=== PATIENT | male | born 1960 | race Caucasian/White ===

== ENCOUNTER 2018-07-29 13:03 | Emergency (ER) | payer OTHER, SELFPAY ==
[2018-07-29 13:12] VITALS: BP 172/102; PULSE 95; RESP 20; TEMP 37.1; O2SAT 98
--- NOTE | 2018-07-29 13:15 | DI.RAD.S_ITS ---
PROCEDURE: XR CHEST 1V INDICATIONS: chest pain TECHNIQUE: One view of the chest was acquired. COMPARISON: [facility], , XR CHEST 2VW, 06/30/2016, 15:19. FINDINGS: Surgical changes and devices: None. Lungs and pleura: Minimal atelectasis versus scarring is identified at the left diaphragm, which is unchanged since the prior study. No new consolidation is evident. There is no effusion or pneumothorax. Mediastinum: Mediastinal contours appear normal. Heart size is normal. Bones and chest wall: No suspicious bony lesions. Overlying soft tissues appear unremarkable. IMPRESSION: Stable chest. No acute cardiopulmonary process is evident. Dictated by: Adelfo Batista M.D. on 07/29/2018 at 12:43 Approved by: Adelfo Batista M.D. on 07/29/2018 at 12:44
[2018-07-29 13:28] LABS: Add Manual Diff / Slide Review NO; Basophils Absolute Auto 100 /uL (0-100); Basophils Percent Auto 0.6 % (0-2); Eosinophils Absolute Auto 0 /uL (0-450); Eosinophils Percent Auto 0.1 % (2-4); Hematocrit 43.8 % (41-53); Hemoglobin 15.3 g/dL (13.5-17.5); Lymphocytes Absolute Auto 1500 /uL (1100-4500); Lymphocytes Percent Auto 14.5 % (25-40); Mean Corpuscular Hemoglobin 32.3 PG (26-34); Mean Corpuscular Volume 92.1 fL (80-100); Monocytes Absolute Auto 600 /uL (0-900); Neutrophils Absolute Auto 8400 /uL (1500-7000); Neutrophils Percent Auto 78.8 % (50-75); Platelet Count 317 X10^3/uL (150-400); Red Blood Cell Count 4.75 X10^6/uL (4.5-5.9); Red Cell Distribution Width 13.7 % (11.6-14.8); White Blood Cell Count 10.6 X10^3/uL (4.5-11.0)
[2018-07-29 13:40] VITALS: BP 140/93; BP 150/103; BP 166/97; PULSE 100; PULSE 108; PULSE 119
[2018-07-29 13:46] LABS: Alanine Aminotransferase 65 IU/L (21-72); Albumin 5.2 g/dL (3.5-5.0); Albumin Globulin Ratio 1.5 (1.0-2.8); Alkaline Phosphatase 74 U/L (38-126); Aspartate Aminotransferase 51 IU/L (17-59); BUN Creatinine Ratio 12.5 (6-22); Bilirubin Total 1.3 mg/dL (0.2-1.3); Blood Urea Nitrogen 10 mg/dL (9-20); Calcium 9.9 mg/dL (8.4-10.2); Carbon Dioxide 22 mmol/L (22-32); Chloride 98 mmol/L (98-107); Estimated Glomerular Filt Rate > 60.0 mL/min (>60); Globulin 3.5 g/dL (1.7-4.1); Glucose 112 mg/dL (70-100); HEMOLYSIS < 15 (0-50); Potassium 3.3 mmol/L (3.4-5.1); Sodium 134 mmol/L (137-145); Total Protein 8.7 g/dL (6.3-8.2)
[2018-07-29 13:58] LABS: Troponin I < 0.012 ng/mL (0.01-0.034)
--- NOTE | 2018-07-29 14:28 | ED.DIZZY ---
HPI - Dizziness General Chief Complaint: Dizziness Stated Complaint: Shaky and weak Time Seen by Provider: 07/29/18 13:17 Source: patient Mode of arrival: ambulatory Limitations: no limitations History of Present Illness HPI Narrative: This is a 57-year-old male comes in with complaint of feeling slightly tremors, dizzy and just not feeling well. Patient states that he started sertraline on . They started at 50 mg they have been titrating him up. He states that he does have a history of aortic stenosis. Patient is unsure if it is mild, moderate or severe. He seen Dr. barry blancas for his forensic medical examiner. He saw them about for 5 months ago. He had an echo about a year ago. They have been following him regularly. He states he kind has a chest pressure intermittently all of the time he has had multiple workups which have been negative. He states that he does feel short of breath sometimes it does not seem to be directly related to exertion. He states sometimes it is when he sitting or has anxiety. Patient denies any nausea or vomiting, no diarrhea, constipation, abdominal pain. He has not had any other GI or urinary symptoms. Patient states his blood pressure was high at the [place] which again went to get checked because he was feeling well. They did check a blood sugar and it showed about 120. Can not had very much fluid to drink this morning. He is on medications for hypertension, dyslipidemia as well as anxiety. Drinks about 2 cans of alcohol daily. I has a history significant for his dad had cardiac issues at the age of 69. He states his sister has some heart issues but she is also very hard on her body. Patient states he did feel little bit dizzy when they did orthostatics here and his heart rate did elevate. Related Data Home Medications Medication Instructions Recorded Confirmed amlodipine 10 mg PO DAILY 07/29/18 07/29/18 chlorthalidone 12.5 mg PO DAILY 07/29/18 07/29/18 losartan 25 mg PO DAILY 07/29/18 07/29/18 metoprolol succinate 50 mg PO DAILY 07/29/18 07/29/18 pantoprazole 40 mg PO DAILY 07/29/18 07/29/18 rosuvastatin 20 mg PO DAILY 07/29/18 07/29/18 sertraline 50 mg PO DAILY 07/29/18 Review of Systems Review of Systems ROS Unobtainable: All systems reviewed & are unremarkable except as noted in HPI and below Constitutional Denies chills, Denies fever(s), Reports headache(s) (mild), Denies lethargy and Denies weakness ENT Ears, Nose, Mouth, and Throat: Denies vertigo, Reports dizziness and Reports headache(s) (mild) Cardiovascular Reports chest pain, Denies diaphoresis, Denies syncope, Denies edema, Denies irregular heart rhythm, Denies lightheadedness, Denies radiating jaw, neck or arm pain, Denies palpitations, Reports dyspnea, Denies dyspnea on exertion and Denies orthopnea Respiratory Denies change in phlegm color, Denies chest congestion, Denies cough, Denies pain on inspiration, Reports dyspnea, Denies dyspnea on exertion and Denies wheezing Gastrointestinal Gastrointestinal: Denies abdominal pain, Denies melena, Denies hematochezia, Denies change in bowel habits, Denies diarrhea, Denies nausea and Denies vomiting Genitourinary Denies hematuria, Denies flank pain, Denies urinary incontinence and Denies urinary urgency Musculoskeletal Denies back pain, Denies numbness and Denies tingling Integumentary/Breasts Denies rash Neurologic Denies vertigo, Reports dizziness, Denies syncope, Reports headache(s) (mild), Denies numbness, Denies sensory deficit, Denies tingling and Denies weakness Psychiatric Reports anxiety and Denies depression Endocrine Denies palpitations Allergic/Immunologic Denies wheezing PFSH Medical History Aortic stenosis (Acute) Dyslipidemia (Acute) Hypertension (Acute) Family History Father No problems noted. Social History Smoking Status: Current some day smoker alcohol intake: current substance use type: does not use Exam Narrative Exam Narrative: GEN: well nourished, well appearing male, alert and oriented x 3, patient appears to be in mild distress. HEENT: Atraumatic, pupils are equal round reactive to light, extraocular movements are intact, nares are clear, TMs are clear with no fluid, there is no conjunctival pallor. Throat is clear without any exudates, erythema, tonsillar enlargement or uvular deviation HEART: Regular rate and rhythm without murmur, clicks, rubs. LUNGS:Lungs clear to auscultation, no wheezes, rales, crackles, chest moves symmetrically ABD:bowel sounds normal, soft, non-tender, no guarding, rebound, rigidity, no masses noted, no hepatosplenomegaly :No CVA tenderness. MSCL: Non-tender, no muscle atrophy, muscles strength 5/5 upper and lower extremities, full range of motion, normal gait NEURO:CN 2-12 intact, sensation normal, reflexes 2/4 upper and lower extremities. Very mild tremor. Initial Vital Signs Initial Vital Signs: Vital Signs Temperature 98.7 F 07/29/18 13:12 Pulse Rate 95 H 07/29/18 13:12 Respiratory Rate 20 07/29/18 13:12 Blood Pressure 172/102 H 07/29/18 13:12 Pulse Oximetry 98 07/29/18 13:12 Course Orders Ordered: ED Orders 07/29/18 12:50 Complete Blood Count AUTO DIFF Stat Comprehensive Metabolic Panel Stat Troponin I Stat 07/29/18 13:15 Chest [XR chest 1V] Stat EKG-12 Lead Stat Discontinued Medications Acetaminophen (Tylenol) 975 mg PO NOW ONE Stop: 07/29/18 14:25 Last Admin: 07/29/18 14:38 Dose: 975 mg Sodium Chloride (Normal Saline 0.9%) 1,000 mls @ 1,000 mls/hr IV BOLUS ONE Stop: 07/29/18 15:23 Last Infusion: 07/29/18 15:42 Dose: 0 mls/hr Admin: 07/29/18 14:39 Dose: 1,000 mls/hr Potassium Chloride (Potassium Chloride) 40 meq PO NOW ONE Stop: 07/29/18 14:28 Last Admin: 07/29/18 14:39 Dose: 40 meq Vital Signs - 8 hr 07/29/18 13:12 07/29/18 13:40 07/29/18 14:47 Temperature 98.7 F Pulse Rate 95 H 94 H Pulse Rate [Orthostatic Lying] 100 H Pulse Rate [Orthostatic Sitting] 108 H Pulse Rate [Orthostatic Standing] 119 H Respiratory Rate 20 14 Blood Pressure 172/102 H Blood Pressure [Left Arm] 157/94 H Blood Pressure [Orthostatic Lying] 166/97 H Blood Pressure [Orthostatic Sitting] 150/103 H Blood Pressure [Orthostatic Standing] 140/93 H Pulse Oximetry 98 95 07/29/18 15:00 07/29/18 15:30 Temperature Pulse Rate 91 H 87 Pulse Rate [Orthostatic Lying] Pulse Rate [Orthostatic Sitting] Pulse Rate [Orthostatic Standing] Respiratory Rate 21 22 Blood Pressure Blood Pressure [Left Arm] 152/93 H 149/88 H Blood Pressure [Orthostatic Lying] Blood Pressure [Orthostatic Sitting] Blood Pressure [Orthostatic Standing] Pulse Oximetry 97 94 MDM - Dizziness Lab Data Attestation: I reviewed the patient's lab results. Result diagrams: 07/29/18 12:50 07/29/18 12:50 Lab Results 07/29/18 07/29/18 Range/Units 12:50 12:50 WBC 10.6 (4.5-11.0) X10^3/uL RBC 4.75 (4.5-5.9) X10^6/uL Hgb 15.3 (13.5-17.5) g/dL Hct 43.8 (41-53) % MCV 92.1 (80-100) fL MCH 32.3 (26-34) PG MCHC 35.0 (30-36) % RDW 13.7 (11.6-14.8) % Plt Count 317 (150-400) X10^3/uL Neut % (Auto) 78.8 H (50-75) % Lymph % (Auto) 14.5 L (25-40) % [place] % (Auto) 6.0 (3-14) % Eos % (Auto) 0.1 L (2-4) % Baso % (Auto) 0.6 (0-2) % Neut # (Auto) 8400 H (5519-6112) /uL Lymph # (Auto) 1500 (1135-2062) /uL [place] # (Auto) 600 (0-900) /uL Eos # (Auto) 0 (0-450) /uL Baso # (Auto) 100 (0-100) /uL Sodium 134 L (137-145) mmol/L Potassium 3.3 L (3.4-5.1) mmol/L Chloride 98 (98-107) mmol/L Carbon Dioxide 22 (22-32) mmol/L BUN 10 (9-20) mg/dL Creatinine 0.80 (0.66-1.25) mg/dL Estimated GFR > 60.0 (>60) mL/min BUN/Creatinine Ratio 12.5 (6-22) Glucose 112 H (70-100) mg/dL Calcium 9.9 (8.4-10.2) mg/dL Total Bilirubin 1.3 (0.2-1.3) mg/dL AST 51 (17-59) IU/L ALT 65 (21-72) IU/L Alkaline Phosphatase 74 (38-126) U/L Troponin I < 0.012 (0.01-0.034) ng/mL Total Protein 8.7 H (6.3-8.2) g/dL Albumin 5.2 H (3.5-5.0) g/dL Globulin 3.5 (1.7-4.1) g/dL Albumin/Globulin Ratio 1.5 (1.0-2.8) Urine Dip Bedside Urine Glucose Negative Bedside Urine Bilirubin - Negative Bedside Urine Ketone - Negative Urine Specific [place] 1.015 Bedside Urine Occult Blood - Negative Bedside Urine pH 7.0 Bedside Urine Protein - Negative Bedside Urine Urobilinogen - Negative Bedside Urine Nitrite - Negative Bedside Urine Leukocytes - Negative Esterase Imaging Data Chest x-ray: Radiologist's impression: [address] [address] XRay Report Signed Patient: Fletcher Marin MR#: [id number] : 1960 Acct:[id number] Age/Sex: 57 / M Date of Service: 07/29/18 Loc: ED Accession Number: [id number] Procedure: XR chest 1V Ordering Provider: Rani Baptiste D.O. PROCEDURE: XR CHEST 1V INDICATIONS: chest pain TECHNIQUE: One view of the chest was acquired. COMPARISON: [facility], , XR CHEST 2VW, 06/30/2016, 15:19. FINDINGS: Surgical changes and devices: None. Lungs and pleura: Minimal atelectasis versus scarring is identified at the left diaphragm, which is unchanged since the prior study. No new consolidation is evident. There is no effusion or pneumothorax. Mediastinum: Mediastinal contours appear normal. Heart size is normal. Bones and chest wall: No suspicious bony lesions. Overlying soft tissues appear unremarkable. IMPRESSION: Stable chest. No acute cardiopulmonary process is evident. Dictated by: Adelfo Batista M.D. on 07/29/2018 at 12:43 Approved by: Adelfo Batista M.D. on 07/29/2018 at 12:44 ECG Data Attestation: I personally reviewed and interpreted this ECG as follows: Prior ECG tracings: not available for review Interpretation: Sign or his rhythm with a rate of 98, MD interval of 192 QRS of 101 and QTC of 414. Patient has some ST depression in V4 5 6. No prior's available. MDM Narrative Medical decision making narrative: Patient comes in with complaint of dizziness. And feeling sort of shaky along with not very well. He was started sertraline 50 mg on . We discussed that some of this could be secondary to his medication but did evaluate for further cardiac, pulmonary/other causes. Discussed with patient in orthostatics are positive. Was given a L of fluids and some Tylenol for a mild headache. Patient states he is feeling better. He has walked to the bathroom several times without issue. He is not having any new changes with this chest pain is not showing any signs a critical or severe aortic stenosis or sudden worsening. We did discuss signs and symptoms to watch out for. Patient feels much better and plan for return home at this time. We did discuss reasons to return emergently. Discharge Plan Departure Patient Disposition: Home Clinical Impression: Dizziness Discharge Date/Time: 07/29/18 15:41 Interventions: ED Discharge Assessment Last Done: 07/29/18 15:41 Instructions: DI for Dizziness-Nonvertigo Activity Restrictions/Additional Instructions: Follow-up with your primary care physician in the next couple days for recheck. If you are continuing to have symptoms I would also contact your forensic medical examiner for follow-up in the next week. I would recommend trying a half dose or half tablet of your sertraline for the next 5-7 days and then increasing to a full tablet daily. This may improve some of your symptoms. Make sure you drinking plenty of fluids. Return to the emergency department for worsening symptoms, passing out, new chest pain or pressure, shortness of breath, persistent vomiting, sudden severe headaches, vision changes, new weakness or numbness or other new or concerning symptoms. Prescriptions: No Action metoprolol succinate 50 mg tablet extended release 24 hr 50 mg PO DAILY RF: 0 chlorthalidone 25 mg tablet 12.5 mg PO DAILY RF: 0 amlodipine 10 mg tablet 10 mg PO DAILY RF: 0 pantoprazole 40 mg tablet,delayed release (DR/EC) 40 mg PO DAILY RF: 0 losartan 25 mg tablet 25 mg PO DAILY RF: 0 sertraline 50 mg tablet 50 mg PO DAILY RF: 0 rosuvastatin 20 mg tablet 20 mg PO DAILY RF: 0
[2018-07-29] MEDS: ACETAMINOPHEN 325 MG TABLET 975 MG PO (14:38)
[2018-07-29] MEDS: POTASSIUM CHLORIDE 20 MEQ/15 ML UDC 40 MEQ PO (14:39)
[2018-07-29] MEDS: SODIUM CHLORIDE 0.9% 1,000 ML 1000 ML IV (14:39)
--- NOTE | 2018-07-29 14:41 | ED_ITS ---
HPI - Dizziness General Chief Complaint: Dizziness Stated Complaint: Shaky and weak Time Seen by Provider: 07/29/18 13:17 Source: patient Mode of arrival: ambulatory Limitations: no limitations History of Present Illness HPI Narrative: This is a 57-year-old male comes in with complaint of feeling slightly tremors, dizzy and just not feeling well. Patient states that he started sertraline on . They started at 50 mg they have been titrating him up. He states that he does have a history of aortic stenosis. Patient is unsure if it is mild, moderate or severe. 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 He saw them about for 5 months ago. He had an echo about a year ago. They have been following him regularly. He states he kind has a chest pressure intermittently all of the time he has had multiple workups which have been negative. He states that he does feel short of breath sometimes it does not seem to be directly related to exertion. He states sometimes it is when he sitting or has anxiety. Patient denies any nausea or vomiting, no diarrhea, constipation, abdominal pain. He has not had any other GI or urinary symptoms. Patient states his blood pressure was high at the ref[place] which again went to get checked because he was feeling well. They did check a blood sugar and it showed about 120. Can not had very much fluid to drink this morning. He is on medications for hypertension, dyslipidemia as well as anxiety. Drinks about 2 cans of alcohol daily. I has a history significant for his dad had cardiac issues at the age of 69. He states his sister has some heart issues but she is also very hard on her body. Patient states he did feel little bit dizzy when they did orthostatics here and his heart rate did elevate. Related Data Home Medications Medication Instructions Recorded Confirmed amlodipine 10 mg PO DAILY 07/29/18 07/29/18 chlorthalidone 12.5 mg PO DAILY 07/29/18 07/29/18 losartan 25 mg PO DAILY 07/29/18 07/29/18 metoprolol succinate 50 mg PO DAILY 07/29/18 07/29/18 pantoprazole 40 mg PO DAILY 07/29/18 07/29/18 rosuvastatin 20 mg PO DAILY 07/29/18 07/29/18 sertraline 50 mg PO DAILY 07/29/18 Review of Systems Review of Systems ROS Unobtainable: All systems reviewed & are unremarkable except as noted in HPI and below Constitutional Denies chills, Denies fever(s), Reports headache(s) (mild), Denies lethargy and Denies weakness ENT Ears, Nose, Mouth, and Throat: Denies vertigo, Reports dizziness and Reports headache(s) (mild) Cardiovascular Reports chest pain, Denies diaphoresis, Denies syncope, Denies edema, Denies irregular heart rhythm, Denies lightheadedness, Denies radiating jaw, neck or arm pain, Denies palpitations, Reports dyspnea, Denies dyspnea on exertion and Denies orthopnea Respiratory Denies change in phlegm color, Denies chest congestion, Denies cough, Denies pain on inspiration, Reports dyspnea, Denies dyspnea on exertion and Denies wheezing Gastrointestinal Gastrointestinal: Denies abdominal pain, Denies melena, Denies hematochezia, Denies change in bowel habits, Denies diarrhea, Denies nausea and Denies vomiting Genitourinary Denies hematuria, Denies flank pain, Denies urinary incontinence and Denies urinary urgency Musculoskeletal Denies back pain, Denies numbness and Denies tingling Integumentary/Breasts Denies rash Neurologic Denies vertigo, Reports dizziness, Denies syncope, Reports headache(s) (mild), Denies numbness, Denies sensory deficit, Denies tingling and Denies weakness Psychiatric Reports anxiety and Denies depression Endocrine Denies palpitations Allergic/Immunologic Denies wheezing PFSH Medical History Aortic stenosis (Acute) Dyslipidemia (Acute) Hypertension (Acute) Family History Father No problems noted. Social History Smoking Status: Current some day smoker alcohol intake: current substance use type: does not use Exam Narrative Exam Narrative: GEN: well nourished, well appearing male, alert and oriented x 3 , patient appears to be in mild distress. HEENT: Atraumatic, pupils are equal round reactive to light, extraocular movements are intact, nares are clear, TMs are clear with no fluid, there is no conjunctival pallor. Throat is clear without any exudates, erythema, tonsillar enlargement or uvular deviation HEART: Regular rate and rhythm without murmur, clicks, rubs. LUNGS:Lungs clear to auscultation, no wheezes, rales, crackles, chest moves symmetrically ABD:bowel sounds normal, soft, non-tender, no guarding, rebound, rigidity, no masses noted, no hepatosplenomegaly :No CVA tenderness. MSCL: Non-tender, no muscle atrophy, muscles strength 5/5 upper and lower extremities, full range of motion, normal gait NEURO:CN 2-12 intact, sensation normal, reflexes 2/4 upper and lower extremities. Very mild tremor. Initial Vital Signs Initial Vital Signs: Vital Signs Temperature 98.7 F 07/29/18 13:12 Pulse Rate 95 H 07/29/18 13:12 Respiratory Rate 20 07/29/18 13:12 Blood Pressure 172/102 H 07/29/18 13:12 Pulse Oximetry 98 07/29/18 13:12 Course Orders Ordered: ED Orders 07/29/18 12:50 Complete Blood Count AUTO DIFF Stat Comprehensive Metabolic Panel Stat Troponin I Stat 07/29/18 13:15 Chest [XR chest 1V] Stat EKG-12 Lead Stat Discontinued Medications Acetaminophen (Tylenol) 975 mg PO NOW ONE Stop: 07/29/18 14:25 Last Admin: 07/29/18 14:38 Dose: 975 mg Sodium Chloride (Normal Saline 0.9%) 1,000 mls @ 1,000 mls/hr IV BOLUS ONE Stop: 07/29/18 15:23 Last Infusion: 07/29/18 15:42 Dose: 0 mls/hr Admin: 07/29/18 14:39 Dose: 1,000 mls/hr Potassium Chloride (Potassium Chloride) 40 meq PO NOW ONE Stop: 07/29/18 14:28 Last Admin: 07/29/18 14:39 Dose: 40 meq Vital Signs - 8 hr 07/29/18 13:12 07/29/18 13:40 07/29/18 14:47 Temperature 98.7 F Pulse Rate 95 H 94 H Pulse Rate [Orthostatic Lying] 100 H Pulse Rate [Orthostatic Sitting] 108 H Pulse Rate [Orthostatic Standing] 119 H Respiratory Rate 20 14 Blood Pressure 172/102 H Blood Pressure [Left Arm] 157/94 H Blood Pressure [Orthostatic Lying] 166/97 H Blood Pressure [Orthostatic Sitting] 150/103 H Blood Pressure [Orthostatic Standing] 140/93 H Pulse Oximetry 98 95 07/29/18 15:00 07/29/18 15:30 Temperature Pulse Rate 91 H 87 Pulse Rate [Orthostatic Lying] Pulse Rate [Orthostatic Sitting] Pulse Rate [Orthostatic Standing] Respiratory Rate 21 22 Blood Pressure Blood Pressure [Left Arm] 152/93 H 149/88 H Blood Pressure [Orthostatic Lying] Blood Pressure [Orthostatic Sitting] Blood Pressure [Orthostatic Standing] Pulse Oximetry 97 94 MDM - Dizziness Lab Data Attestation: I reviewed the patient's lab results. Result diagrams: 07/29/18 12:50 07/29/18 12:50 Lab Results 07/29/18 07/29/18 Range/Units 12:50 12:50 WBC 10.6 (4.5-11.0) X10^3/uL RBC 4.75 (4.5-5.9) X10^6/uL Hgb 15.3 (13.5-17.5) g/dL Hct 43.8 (41-53) % MCV 92.1 (80-100) fL MCH 32.3 (26-34) PG MCHC 35.0 (30-36) % RDW 13.7 (11.6-14.8) % Plt Count 317 (150-400) X10^3/uL Neut % (Auto) 78.8 H (50-75) % Lymph % (Auto) 14.5 L (25-40) % Norman % (Auto) 6.0 (3-14) % Eos % (Auto) 0.1 L (2-4) % Baso % (Auto) 0.6 (0-2) % Neut # (Auto) 8400 H (6171-1398) /uL Lymph # (Auto) 1500 (3526-3847) /uL Norman # (Auto) 600 (0-900) /uL Eos # (Auto) 0 (0-450) /uL Baso # (Auto) 100 (0-100) /uL Sodium 134 L (137-145) mmol/L Potassium 3.3 L (3.4-5.1) mmol/L Chloride 98 (98-107) mmol/L Carbon Dioxide 22 (22-32) mmol/L BUN 10 (9-20) mg/dL Creatinine 0.80 (0.66-1.25) mg/dL Estimated GFR > 60.0 (>60) mL/min BUN/Creatinine Ratio 12.5 (6-22) Glucose 112 H (70-100) mg/dL Calcium 9.9 (8.4-10.2) mg/dL Total Bilirubin 1.3 (0.2-1.3) mg/dL AST 51 (17-59) IU/L ALT 65 (21-72) IU/L Alkaline Phosphatase 74 (38-126) U/L Troponin I < 0.012 (0.01-0.034) ng/mL Total Protein 8.7 H (6.3-8.2) g/dL Albumin 5.2 H (3.5-5.0) g/dL Globulin 3.5 (1.7-4.1) g/dL Albumin/Globulin Ratio 1.5 (1.0-2.8) Urine Dip Bedside Urine Glucose Negative Bedside Urine Bilirubin - Negative Bedside Urine Ketone - Negative Urine Specific [place] 1.015 Bedside Urine Occult Blood - Negative Bedside Urine pH 7.0 Bedside Urine Protein - Negative Bedside Urine Urobilinogen - Negative Bedside Urine Nitrite - Negative Bedside Urine Leukocytes - Negative Esterase Imaging Data Chest x-ray: Radiologist's impression: [address] [address] XRay Report Signed Patient: Fletcher Marin MR#: [id number] : 1960 Acct:[id number] Age/Sex: 57 / M Date of Service: 07/29/18 Loc: ED Accession Number: [id number] Procedure: XR chest 1V Ordering Provider: Rani Baptiste D.O. PROCEDURE: XR CHEST 1V INDICATIONS: chest pain TECHNIQUE: One view of the chest was acquired. COMPARISON: [facility], , XR CHEST 2VW, 06/30/2016, 15:19. FINDINGS: Surgical changes and devices: None. Lungs and pleura: Minimal atelectasis versus scarring is identified at the left diaphragm, which is unchanged since the prior study. No new consolidation is evident. There is no effusion or pneumothorax. Mediastinum: Mediastinal contours appear normal. Heart size is normal. Bones and chest wall: No suspicious bony lesions. Overlying soft tissues appear unremarkable. IMPRESSION: Stable chest. No acute cardiopulmonary process is evident. Dictated by: Adelfo Batista M.D. on 07/29/2018 at 12:43 Approved by: Adelfo Batista M.D. on 07/29/2018 at 12:44 ECG Data Attestation: I personally reviewed and interpreted this ECG as follows: Prior ECG tracings: not available for review Interpretation: Sign or his rhythm with a rate of 98, MD interval of 192 QRS of 101 and QTC of 414. Patient has some ST depression in V4 5 6. No prior's available. MDM Narrative Medical decision making narrative: Patient comes in with complaint of dizziness. And feeling sort of shaky along with not very well. He was started sertraline 50 mg on . We discussed that some of this could be secondary to his medication but did evaluate for further cardiac, pulmonary/ other causes. Discussed with patient in orthostatics are positive. Was given a L of fluids and some Tylenol for a mild headache. Patient states he is feeling better. He has walked to the bathroom several times without issue. He is not having any new changes with this chest pain is not showing any signs a critical or severe aortic stenosis or sudden worsening. We did discuss signs and symptoms to watch out for. Patient feels much better and plan for return home at this time. We did discuss reasons to return emergently. Discharge Plan Departure Patient Disposition: Home Clinical Impression: Dizziness Discharge Date/Time: 07/29/18 15:41 Interventions: ED Discharge Assessment Last Done: 07/29/18 15:41 Instructions: DI for Dizziness-Nonvertigo Activity Restrictions/Additional Instructions: Follow-up with your primary care physician in the next couple days for recheck. 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 I would recommend trying a half dose or half tablet of your sertraline for the next 5-7 days and then increasing to a full tablet daily. This may improve some of your symptoms. Make sure you drinking plenty of fluids. Return to the emergency department for worsening symptoms, passing out, new chest pain or pressure, shortness of breath, persistent vomiting, sudden severe headaches, vision changes, new weakness or numbness or other new or concerning symptoms. Prescriptions: No Action metoprolol succinate 50 mg tablet extended release 24 hr 50 mg PO DAILY RF: 0 chlorthalidone 25 mg tablet 12.5 mg PO DAILY RF: 0 amlodipine 10 mg tablet 10 mg PO DAILY RF: 0 pantoprazole 40 mg tablet,delayed release (DR/EC) 40 mg PO DAILY RF: 0 losartan 25 mg tablet 25 mg PO DAILY RF: 0 sertraline 50 mg tablet 50 mg PO DAILY RF: 0 rosuvastatin 20 mg tablet 20 mg PO DAILY RF: 0
[2018-07-29 14:47] VITALS: BP 157/94; PULSE 94; RESP 14; O2SAT 95
[2018-07-29 15:00] VITALS: BP 152/93; PULSE 91; RESP 21; O2SAT 97
[2018-07-29 15:30] VITALS: BP 149/88; PULSE 87; RESP 22; O2SAT 94
== END 2018-07-29 15:41 | disposition home or self-care (01) ==
PROVIDERS: Emergency Provider Emergency Medicine
DX: R42 Dizziness and giddiness (principal)
CPT/HCPCS: 36591; 71045; 80053; 81003; 84484; 85025; 93005; 93010; 96360; 99283; 99285

== ENCOUNTER 2023-10-22 07:00 | Emergency (ER) | payer BC, SELFPAY ==
[2023-10-22 07:13] VITALS: BP 138/75; PULSE 103; RESP 19; TEMP 37.2; O2SAT 96; BMI 30.4
--- NOTE | 2023-10-22 07:20 | ED.CHESTPAIN ---
HPI - Chest Pain General Chief Complaint: Chest Pain Stated Complaint: chest pain Time Seen by Provider: 10/22/23 07:19 Source: patient and EMS Mode of arrival: EMS Limitations: no limitations History of Present Illness HPI narrative: 62-year-old male history of two-vessel CABG, hypertension, dyslipidemia, COPD on aspirin 81 mg daily presents with complaint of right-sided chest pain that started about 5:45 a.m.. Patient was at work at [employer]. He states he did exert himself and work and a yd a lot yesterday and sometimes gets discomfort in his chest the following day. He states did not radiate, he chronically feels short of breath does not feel significantly more. Denies fevers or chills, no congestion, he has got a chronic cough which he describes as dry and nonproductive. Patient states no nausea or vomiting, no diaphoresis. No swelling of extremities no issues with bowel movements or urination. He had sublingual nitro he took 1 after period of time chest pain resolved after about 10 minutes but he felt very dizzy and lightheaded afterwards and was noted by EMS to be hypotensive. Patient states he feels improved now chest pain has resolved and has not returned. He did receive aspirin 324 mg in the field. Patient states only prior surgeries are 2 vessel CABG in October 2021. No known drug allergies. Occasionally chews tobacco but no longer smokes. Occasional alcohol, no recreational drugs. No long distance travel no history of blood clots. Patient follows with Dr. Wiley for Cardiology, has not appointment tomorrow for regular follow-up. Related Data Home Medications Medication Instructions Recorded Confirmed amlodipine 10 mg tablet 10 mg PO DAILY 07/29/18 07/29/18 chlorthalidone 25 mg tablet 12.5 mg PO DAILY 07/29/18 07/29/18 losartan 25 mg tablet 25 mg PO DAILY 07/29/18 07/29/18 metoprolol succinate 50 mg 50 mg PO DAILY 07/29/18 07/29/18 tablet,extended release 24 hr pantoprazole 40 mg tablet,delayed 40 mg PO DAILY 07/29/18 07/29/18 release rosuvastatin 20 mg tablet 20 mg PO DAILY 07/29/18 07/29/18 sertraline 50 mg tablet 50 mg PO DAILY 07/29/18 Allergies Allergy/AdvReac Type Severity Reaction Status Date / Time No Known Drug Allergies Allergy Verified 10/22/23 07:12 Review of Systems Review of Systems ROS Unobtainable: All systems reviewed & are unremarkable except as noted in HPI and below Patient History Medical History Aortic stenosis Hypertension Dyslipidemia Family History Father No problems noted. Social History Smoking Status: Former smoker alcohol intake: current substance use type: does not use Smoking Status: Former smoker Substance Use Type: does not use Exam Narrative Exam Narrative: GENERAL: Alert and oriented x three, male in mild distress HEENT: Head normocephalic, atraumatic, EOMI, pupils reactive, face symmetric, moist mucous membranes NECK: Supple, full range of motion CARDIOVASCULAR: Regular rate and rhythm without murmurs, rubs or gallops. No JVD. No edema bilateral lower extremities. RESPIRATORY: Breath sounds equal bilaterally, no wheezes rales or rhonchi. No tachypnea or accessory muscle use. Patient has persistent dry cough which he states is his normal baseline. ABDOMEN: Soft, nontender. Normoactive bowel sounds all 4 quadrants. No guarding or rebound, rigidity, no mass : No CVA tenderness EXTREMITIES: Normal range of motion, no clubbing or edema. Neurovascularly intact NEUROLOGICAL: Cranial nerves II through XII grossly intact. Moving all extremities SKIN: Warm, dry, no petechiae, no rashes or lesions. Initial Vital Signs Initial Vital Signs: Vital Signs Temperature 98.9 F 10/22/23 07:13 Pulse Rate 103 H 10/22/23 07:13 Respiratory Rate 19 10/22/23 07:13 Blood Pressure 138/75 10/22/23 07:13 Pulse Oximetry 96 10/22/23 07:13 Oxygen Delivery Method Room Air 10/22/23 07:13 Course Orders Ordered: Discontinued Medications Aspirin (Aspirin 81 Mg Chew Tab) 324 mg PO NOW ONE Stop: 10/22/23 07:21 Last Admin: 10/22/23 08:07 Dose: Not Given Documented By: MPO Vital Signs Vital signs: Vital Signs - 8 hr 10/22/23 07:13 10/22/23 07:44 10/22/23 08:00 Temperature 98.9 F Pulse Rate 103 H 96 H 87 Respiratory Rate 19 23 22 Blood Pressure 138/75 138/75 Pulse Oximetry 96 96 94 Oxygen Delivery Method Room Air 10/22/23 08:30 10/22/23 09:00 Temperature Pulse Rate 80 95 H Respiratory Rate 23 28 H Blood Pressure Pulse Oximetry 96 95 Oxygen Delivery Method MDM - Chest Pain Lab Data 10/22/23 07:22 10/22/23 07:22 Labs: Lab Results 10/22/23 10/22/23 Range/Units 07:22 09:23 WBC 9.6 (4.5-11.0) X10^3/uL RBC 4.21 L (4.5-5.9) X10^6/uL Hgb 13.6 (13.5-17.5) g/dL Hct 39.2 L (41-53) % MCV 93.1 (80-100) fL MCH 32.3 (26-34) PG MCHC 34.7 (30-36) % RDW 13.1 (11.6-14.8) % Plt Count 270 (150-400) X10^3/uL Neut % (Auto) 79.1 H (50-75) % Lymph % (Auto) 14.3 L (25-40) % Mccormick % (Auto) 6.1 (3-14) % Eos % (Auto) 0.4 L (2-4) % Baso % (Auto) 0.1 (0-2) % Neut # (Auto) 7600 H (2392-1516) /uL Lymph # (Auto) 1400 (6468-8520) /uL M[place]ormick # (Auto) 600 (0-900) /uL Eos # (Auto) 0 (0-450) /uL Baso # (Auto) 0 (0-100) /uL PT 12.3 (9.4-12.5) SECONDS INR 1.1 (0.9-1.3) APTT 31 (25.1-36.5) SECONDS D-Dimer 224 (<500) ng/ml Sodium 136 L (137-145) mmol/L Potassium 3.8 (3.4-5.1) mmol/L Chloride 101 (98-107) mmol/L Carbon Dioxide 25 (22-32) mmol/L BUN 14 (9-20) mg/dL Creatinine 1.02 (0.66-1.25) mg/dL Estimated GFR > 60 (>60) mL/min BUN/Creatinine Ratio 13.7 (6-22) Glucose 143 H (80-110) mg/dL Calcium 10.2 (8.4-10.2) mg/dL Magnesium 1.7 (1.6-2.3) mg/dL Total Bilirubin 1.8 H (0.2-1.3) mg/dL AST 32 (17-59) IU/L ALT 39 (<50) IU/L Alkaline Phosphatase 58 (38-126) U/L Total Creatine Kinase 120 (55-170) U/L Troponin I < 0.012 < 0.012 (0.01-0.034) ng/mL NT-Pro-B Natriuret Pep 131 H (<125) pg/mL Total Protein 8.3 H (6.3-8.2) g/dL Albumin 5.0 (3.5-5.0) g/dL Globulin 3.3 (1.7-4.1) g/dL Albumin/Globulin Ratio 1.5 (1.0-2.8) Lipase 241 (23-300) U/L Imaging Data Chest x-ray: Radiologist's Impression: Close Chest X-Ray (Signed) Romeo Yousif - 10/22/23 Chest X-Ray (Signed) Adelfo Batista - 07/29/18 Launch?Image [address] [address] XRay Report Signed Patient: Fletcher Marin MR#: [id number] : 1960 Acct:[id number] Age/Sex: 62 / M Date of Service: 10/22/23 Loc: ED Accession Number: [id number] Procedure: XR chest 1V Ordering Provider: Rani Baptiste D.O. PROCEDURE: XR CHEST 1V INDICATIONS: chest pain TECHNIQUE: One view of the chest was acquired. COMPARISON: [facility], , XR CHEST 1V, 07/29/2018, 13:40. FINDINGS: Surgical changes and devices: Sternotomy. Lungs and pleura: Lungs are clear. No pleural effusions or pneumothorax. Left apical scarring. Mediastinum: Mediastinal contours appear normal. Heart size is normal. Bones and chest wall: No suspicious bony lesions. Overlying soft tissues appear unremarkable. IMPRESSION: No acute cardiopulmonary abnormality is seen. Dictated by: Romeo Yousif M.D. on 10/22/2023 at 8:28 Approved by: Romeo Yousif M.D. on 10/22/2023 at 8:32 ECG Data Attestation: I personally reviewed and interpreted this ECG as follows: Prior ECG tracings: available for review Interpretation: Sinus tachycardia rate of 112 VT 174 QRS 88 QTC of 458. No acute ST elevation depression noted. Patient has prior from 07/29/[address] changes appreciated. MDM Narrative Medical decision making narrative: 62-year-old male presents with right-sided chest pain that resolved after nitro sublingual patient did feel quite lightheaded and dizzy. He was noted to be tachycardic in the field in the 130s has been slowly improving without any intervention patient notes that he is typically tachycardic at baseline. He does have a cardiac history with two-vessel CABG receive aspirin 324 mg in the field and took 1 sublingual nitro of his own. Symptoms have since resolved. Workup including labs CBC shows a hematocrit of 39 hemoglobin of 13.6 white count of 9.6 platelets of 270, coags are negative, D-dimer is negative at 224. Sodium is 136 potassium 3.8 normal BUN and creatinine of 1.02 glucose is 143, total bilirubin 0.8, AST ALT alk-phos and lipase are normal range. Troponin is negative. BNP is 131. Chest x-ray is negative EKG shows sinus tach nonspecific change but appears similar to EKG from 07/29/2018. Repeat troponin is negative. Patient has continued to be asymptomatic. He is follow-up tomorrow with his eligibility and occupancy interviewer, he does have sublingual nitro at home and isn't on appropriate therapy and felt appropriate for discharge home. Discharge Plan Departure Patient Disposition: Home Clinical Impression: Atypical chest pain Instructions: DI for Atypical Chest Pain Activity Restrictions/Additional Instructions: Follow up with your eligibility and occupancy interviewer at your scheduled appointment tomorrow. Let them know that you were seen here today. Continue your home medications as prescribed. Please return if you have recurrent chest, shortness of breath, lightheadedness or passing out, sweatiness, nausea, new swelling in her extremities or other new or concerning changes. Prescriptions: No Action metoprolol succinate 50 mg tablet extended release 24 hr 50 mg PO DAILY chlorthalidone 25 mg tablet 12.5 mg PO DAILY Patient Comments: take 1/2 by mouth daily amlodipine 10 mg tablet 10 mg PO DAILY pantoprazole 40 mg tablet,delayed release (DR/EC) 40 mg PO DAILY losartan 25 mg tablet 25 mg PO DAILY sertraline 50 mg tablet 50 mg PO DAILY rosuvastatin 20 mg tablet 20 mg PO DAILY Stand Alone Forms: Patient Portal/API
[2023-10-22 07:25] LABS: HEMOLYSIS < 15 (0-50)
[2023-10-22 07:27] LABS: Add Manual Diff / Slide Review NO; Basophils Absolute Auto 0 /uL (0-100); Basophils Percent Auto 0.1 % (0-2); Eosinophils Absolute Auto 0 /uL (0-450); Eosinophils Percent Auto 0.4 % (2-4); Hematocrit 39.2 % (41-53); Hemoglobin 13.6 g/dL (13.5-17.5); INR 1.1 (0.9-1.3); Lymphocytes Absolute Auto 1400 /uL (1100-4500); Lymphocytes Percent Auto 14.3 % (25-40); Mean Corpuscular HGB Conc 34.7 % (30-36); Mean Corpuscular Hemoglobin 32.3 PG (26-34); Mean Corpuscular Volume 93.1 fL (80-100); Monocytes Absolute Auto 600 /uL (0-900); Monocytes Percent Auto 6.1 % (3-14); Neutrophils Absolute Auto 7600 /uL (1500-7000); Neutrophils Percent Auto 79.1 % (50-75); Platelet Count 270 X10^3/uL (150-400); Prothrombin Time 12.3 SECONDS (9.4-12.5); Red Blood Cell Count 4.21 X10^6/uL (4.5-5.9); Red Cell Distribution Width 13.1 % (11.6-14.8); White Blood Cell Count 9.6 X10^3/uL (4.5-11.0)
[2023-10-22 07:30] LABS: PTT Partial Thromboplastin Tim 31 SECONDS (25.1-36.5)
[2023-10-22 07:33] LABS: Alanine Aminotransferase 39 IU/L (<50); Albumin Globulin Ratio 1.5 (1.0-2.8); Alkaline Phosphatase 58 U/L (38-126); Aspartate Aminotransferase 32 IU/L (17-59); BUN Creatinine Ratio 13.7 (6-22); Bilirubin Total 1.8 mg/dL (0.2-1.3); Blood Urea Nitrogen 14 mg/dL (9-20); Calcium 10.2 mg/dL (8.4-10.2); Carbon Dioxide 25 mmol/L (22-32); Chloride 101 mmol/L (98-107); Creatine Kinase 120 U/L (55-170); Estimated Glomerular Filt Rate > 60 mL/min (>60); Globulin 3.3 g/dL (1.7-4.1); Glucose 143 mg/dL (80-110); Lipase 241 U/L (23-300); Magnesium 1.7 mg/dL (1.6-2.3); Potassium 3.8 mmol/L (3.4-5.1); Sodium 136 mmol/L (137-145); Total Protein 8.3 g/dL (6.3-8.2)
[2023-10-22 07:42] LABS: D Dimer 224 ng/ml (<500)
[2023-10-22 07:44] VITALS: PULSE 96; RESP 23; O2SAT 96
[2023-10-22 07:50] LABS: Troponin I < 0.012 ng/mL (0.01-0.034)
[2023-10-22 07:51] LABS: NT-proBNP (BNP-Adult 18+) 131 pg/mL (<125)
[2023-10-22 08:00] VITALS: BP 138/75; PULSE 87; RESP 22; O2SAT 94
--- NOTE | 2023-10-22 08:10 | PC.NURSE ---
Pt states that he started feeling substernal cp this morning around 0600 while he was going up and down the stairs. Pt reports feeling dizzy and lightheaded and then took 1 SL nitro tab. CP resolved and pt denies having any pain, SOB, dizziness at this time. Pt states that when he took the nitro he felt more dizyz and says that his blood pressure went ballistic. Pt is a&ox4 and VS WNL.
[2023-10-22 08:30] VITALS: PULSE 80; RESP 23; O2SAT 96
[2023-10-22 09:00] VITALS: PULSE 95; RESP 28; O2SAT 95
--- NOTE | 2023-10-22 09:27 | PC.NURSE ---
Pt states that he remains cp free. A&Ox4.
[2023-10-22 09:55] LABS: Troponin I < 0.012 ng/mL (0.01-0.034)
[2023-10-22 10:13] VITALS: BP 134/83; PULSE 75; RESP 20; O2SAT 98
== END 2023-10-22 10:13 | disposition home or self-care (01) ==
PROVIDERS: Emergency Provider Emergency Medicine
DX: R07.89 Other chest pain (principal)
CPT/HCPCS: 36415; 71045; 80053; 82550; 83690; 83735; 83880; 84484; 85025; 85379; 85610; 85730; 93005; 93010; 99283; 99284